=== PATIENT | female | born 1990 | race Caucasian/White ===

== ENCOUNTER 2017-01-07 19:25 | Emergency (ER) | payer MEDICAID ==
[~2017-01-07 19:25] MED LIST: CLEOCIN HCL300 MG PO; MACROBID100 MG/CA1 PO; NO MEDICATIONS; NORCO 5/3251 TA1 PO; PHENERGAN25 MG PO; PRENATAL1 EACH PO; SMZ-TMP DS 800-1 TAB PO; ZOFRAN ODT4 MG/UDTAB PO
[2017-01-07 21:31] LABS: URINE BILIRUBIN NEGATIVE (NEG); URINE BLOOD LARGE (NEG); URINE GLUCOSE (UA) NEGATIVE (NEG); URINE KETONE SMALL (NEG); URINE LEUKOCYTE ESTERASE POSITIVE (NEG); URINE NITRITE NEGATIVE (NEG); URINE PROTEIN MODERATE (NEG); URINE SPECIFIC GRAVITY 1.025 (1.003-1.030)
[2017-01-07 21:32] LABS: URINE APPEARANCE CLOUDY; URINE COLOR YELLOW
[2017-01-07 21:40] LABS: URINE BACTERIA 3+; URINE EPITHELIAL CELLS FULL FIELD /[HPF] (0-10); URINE RBC 80-100 /[HPF] (0-5); URINE WBC FULL FIELD /[HPF] (0-5)
[2017-01-07] MEDS ORDERED: NORCO 5/3251 TAB PO (22:41)
[2017-01-07] MEDS ORDERED: MACROBID 100 M100 M1 PO (22:41)
[2017-01-07] MEDS ORDERED: PYRIDIUM100 M2 PO (22:41)
[2017-06-19] MEDS ORDERED: IRON325 M3 PO (12:58)
[2017-06-21] MEDS ORDERED: PERCOCET 5-3251 EACH PO (02:19)
== END 2017-01-07 22:43 ==
LOC: EDMED 19:25
PROVIDERS: Emergency Medicine
DX: N39.0 Urinary tract infection, site not specified (principal); N93.8 Other specified abnormal uterine and vaginal bleeding